=== PATIENT | female | born 1980 | race African-American/Black ===

== ENCOUNTER 2017-01-13 22:12 | Emergency (ER) | payer MEDICAID ==
[~2017-01-13] VITALS: Ht 154.9 cm; Wt 59.0 kg
[2017-01-14 05:50] LABS: HEMATOCRIT. 26.2 % (36.0-48.0); MEAN CORPUSCULAR HEMOGLOBIN 30.1 pg (28.0-32.0); MEAN CORPUSCULAR VOLUME 87.7 fL (81.0-99.0); MEAN PLATELET VOLUME 7.9 fl (7.4-10.4); PLATELET 345 x1000/uL (130-400); RED BLOOD CELL COUNT 2.99 mill/uL (4.2-5.4); RED CELL DISTRIBUTION WIDTH 12.7 % (11.6-14.6)
[2017-01-14 05:53] LABS: CLARITY URINE CLEAR (CLEAR); COLOR URINE DARK YELLOW (YELLOW); GLUCOSE URINE NEGATIVE (NEGATIVE); KETONES URINE NEGATIVE (NEGATIVE); LEUKOCYTE ESTERASE URINE TRACE (NEGATIVE); NITRITE URINE NEGATIVE (NEGATIVE); OCCULT BLOOD URINE 1+ (NEGATIVE); PROTEIN URINE 1+ (NEGATIVE); SPECIFIC GRAVITY URINE 1.014 (1.005-1.030)
[2017-01-14 06:12] LABS: CARBON DIOXIDE 24 mEq/L (21-32); CHLORIDE 99 mEq/L (98-107)
[2017-01-14 06:35] LABS: PLATELET ESTIMATE NORMAL
[2017-01-14] MEDS ORDERED: SODIUM CHLORIDE 0.9% 1,000 ML IV ONE ×2 (06:49→10:32)
[2017-01-14] MEDS ORDERED: ONDANSETRON HCL 4MG/2ML VIAL IV SCH (07:00)
[2017-01-14] MEDS ORDERED: KETOROLAC 30MG/ML VIAL IV SCH (07:00)
[2017-01-14] MEDS ORDERED: CEFTRIAXONE 1 G PREMIX 50 ML IV ONE (10:45)
[2017-01-14 12:10] VITALS: BP 110/60
== END 2017-01-14 12:30 | disposition home or self-care (01) ==
LOC: ER 22:12
DX: J20.9 Acute bronchitis, unspecified (principal); R10.13 Epigastric pain; F12.10 Cannabis abuse, uncomplicated; Z87.891 Personal history of nicotine dependence
CPT/HCPCS: 36415; 71010; 80053; 81001; 81025; 83690; 85025; 96361; 96365; 96375; 99285; J0696; J1885; J2405; J7030

== ENCOUNTER 2023-08-28 01:52 | Emergency (ER) | payer SELFPAY ==
[~2023-08-28] VITALS: Ht 154.9 cm; Wt 58.0 kg
[2023-08-28 01:56] VITALS: O2SAT 100
[2023-08-28] MEDS ORDERED: LIDOCAINE HCL 1% 10 MG/ML 10ML VIAL ONE (03:37)
[2023-08-28] MEDS ORDERED: ACETAMINOPHEN 325MG TABLET ONE (03:37)
[2023-08-28] MEDS ORDERED: NAPR275T96 MT (04:00)
[2023-08-28 04:19] VITALS: BP 113/63; PULSE 99; RESP 16; TEMP 98.5
== END 2023-08-28 04:48 | disposition home or self-care (01) ==
LOC: ER 01:52
DX: S81.012A Laceration without foreign body, left knee, initial encounter (principal); F12.10 Cannabis abuse, uncomplicated; W01.0XXA Fall on same level from slipping, tripping and stumbling without subsequent striking against object, initial encounter; Y93.89 Activity, other specified; Y92.89 Other specified places as the place of occurrence of the external cause; Y99.8 Other external cause status
CPT/HCPCS: 99282; 81025; 12001; J3490

== ENCOUNTER 2023-09-18 17:30 | Emergency (ER) | payer SELFPAY ==
[~2023-09-18] VITALS: Ht 154.9 cm; Wt 68.0 kg
[~2023-09-18 17:30] MED LIST: NAPR275T96 MT
[2023-09-18 17:39] VITALS: BP 168/81; PULSE 110; RESP 16; TEMP 98.2; O2SAT 100
== END 2023-09-18 17:54 | disposition home or self-care (01) ==
LOC: ER 17:30
DX: S81.012D Laceration without foreign body, left knee, subsequent encounter (principal); F12.10 Cannabis abuse, uncomplicated; X58.XXXD Exposure to other specified factors, subsequent encounter
CPT/HCPCS: 99281